=== PATIENT | male | born 2000 | race Hispanic/Latino ===

== ENCOUNTER 2021-08-03 02:52 | Emergency (ER) | payer OTHER ==
[2021-08-03] MEDS ORDERED: Ondansetron PF 4 MG/2 ML Vial ONE (03:15)
== END 2021-08-03 04:29 | disposition home or self-care (01) ==
LOC: ERS 02:52
DX: F10.129 Alcohol abuse with intoxication, unspecified (principal); R11.10 Vomiting, unspecified
CPT/HCPCS: 96374; J2405